=== PATIENT | female | born 1985 | race Caucasian/White ===

== ENCOUNTER 2016-08-01 19:27 | Emergency (ER) | payer OTHER ==
[2016-08-01 20:15] VITALS: BMI 27.1
[2016-08-01 20:18] VITALS: BP 142/84; PULSE 74; RESP 18; TEMP 97.9; O2SAT 100
--- NOTE | 2016-08-01 21:08 | ED PDOC ---
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 Patient stated while taking a shower she developed symptoms. Patient stated her nose felt swollen, however this symptom has resolved. Patient denies rash, sob, cp, wheezing, dysphagia, kenny, fever, sick contact, or recent travel. Denies exposure to allergen, however she said she allergic to her dog's dandruff, and she was told by her private ENT to take OTC antihistaminic medication. (Harvey Boyd) Past Medical History - Provider Review Nursing Documentation Reviewed: Yes - Infectious Disease Hx of Infectious Diseases: None - Tetanus Immunization Tetanus Immunization: Unknown - Past Medical History Past Medical History: No Previous - Psychiatric Hx Substance Use: No - Past Surgical History Past Surgical History: No Previous - Anesthesia Hx Anesthesia: No Hx Anesthesia Reactions: No Hx Malignant Hyperthermia: No - Suicidal Assessment Feels Threatened In Home Enviroment: No <Harvey Boyd - Last Filed: 08/03/16 14:25> Family/Social History - Physician Review Nursing Documentation Reviewed: Yes Family/Social History: No Known Family HX Smoking Status: Never Smoked Hx Alcohol Use: No Hx Substance Use: No Hx Substance Use Treatment: No <Harvey Boyd - Last Filed: 08/03/16 14:25> Allergies/Home Meds <Yosef Disla - Last Filed: 08/01/16 21:52> <Harvey Boyd - Last Filed: 08/03/16 14:25> Allergies/Adverse Reactions: Allergies No Known Allergies Allergy (Verified 08/05/14 09:15) Review of Systems - Review of Systems Constitutional: Normal. absent: Fatigue, Weight Change, Fevers, Night Sweats Eyes: Normal ENT: Normal, Rhinorrhea, Sinus Congestion. absent: Voice Changes, Sore Throat Respiratory: Normal. absent: SOB, Cough Cardiovascular: Normal. absent: Palpitations Gastrointestinal: Normal. absent: Abdominal Pain, Diarrhea, Nausea Genitourinary Female: Normal. absent: Dysuria, Frequency, Hematuria, Urine Output Changes, Vaginal Bleeding, Vaginal Discharge Musculoskeletal: Normal Skin: Normal. absent: Rash, Pruritis, Skin Lesions Neurological: Normal. absent: Headache, Dizziness, Focal Weakness, Gait Changes , Speech Changes, Facial Droop, Disequilibrium, Seizure Endocrine: Normal Hemo/Lymphatic: Normal Psychiatric: Normal <Harvey Boyd P - Last Filed: 08/03/16 14:25> Physical Exam Temperature: Afebrile Blood Pressure: Normal Pulse: Regular Respiratory Rate: Normal Appearance: Positive for: Well-Appearing, Non-Toxic, Comfortable Pain Distress: None Mental Status: Positive for: Alert and Oriented X 3 - Systems Exam Head: Present: Atraumatic, Normocephalic. No: Swelling Pupils: Present: PERRL Extroacular Muscles: Present: EOMI Conjunctiva: Present: Normal. No: Injected Ears: Present: Normal, NORMAL TM, Normal Canal. No: Erythema, TM Bulging, Fluid , TM Perf Mouth: Present: Moist Mucous Membranes, Normal Lips, Normal Tounge, Normal Teeth. No: Drooling Pharnyx: Present: Normal. No: ERYTHEMA, EXUDATE, TONSILS ENLARGED, Peritonsilar Swelling, Uvular Deviation, Muffled/Hoarse Voice, Strider, Soft Palate/Uvular Edema Nose (External): Present: Atraumatic Nose (Internal): Present: Clear Mucous, Rhinorrhea Neck: Present: Normal Range of Motion. No: Meningeal Signs Respiratory/Chest: Present: Clear to Auscultation, Good Air Exchange. No: Respiratory Distress, Accessory Muscle Use, Wheezes, Decreased Breath Sounds, Rales, Retracting, Rhonchi, Tachypneic Cardiovascular: Present: Regular Rate and Rhythm, Normal S1, S2. No: Murmurs Abdomen: Present: Normal Bowel Sounds. No: Tenderness, Distention, Peritoneal Signs Back: Present: Normal Inspection Upper Extremity: Present: Normal Inspection. No: Cyanosis, Edema Lower Extremity: Present: Normal Inspection. No: Edema Neurological: Present: GCS=15, CN II-XII Intact, Speech Normal Skin: Present: Warm, Dry, Normal Color. No: Rashes Psychiatric: Present: Alert, Oriented x 3, Normal Insight, Normal Concentration <Harvey Boyd - Last Filed: 08/03/16 14:25> Vital Signs Temp Pulse Resp BP Pulse Ox 08/01/16 20:15 97.9 F 74 18 142/84 100 Medical Decision Making <NaifYosef - Last Filed: 08/01/16 21:52> Re-evaluation Time: 21:20 Reassessment Condition: Re-examined, Improved <Harvey Boyd - Last Filed: 08/03/16 14:25> ED Course and Treatment: 08/01/16 21:24 Re-evaluation. Patient feels better. Discussed results and plan with patient who expresses understanding. All questions answered and there is agreement with the plan to discharge home with instructions. Patient stable for discharge. Return if symptoms persist or worsen. (Harvey Boyd) - Medication Orders Current Medication Orders: Discontinued Medications Azithromycin (Zithromax) 500 mg PO STAT STA PRN Reason: Protocol Stop: 08/01/16 21:29 Last Admin: 08/01/16 21:39 Dose: 500 MG Prednisone (Prednisone Tab) 60 mg PO STAT ONE Stop: 08/01/16 21:29 Last Admin: 08/01/16 21:39 Dose: 60 MG - PA / [employer] / Resident Statement / has reviewed & agrees with the documentation as recorded. <NaifYosef - Last Filed: 08/01/16 21:52> Disposition/Present on Arrival <NaifYosef - Last Filed: 08/01/16 21:52> - Present on Arrival Any Indicators Present on Arrival: No History of DVT/PE: No History of Uncontrolled Diabetes: No Urinary Catheter: No History of Decub. Ulcer: No History Surgical Site Infection Following: None - Disposition Have Diagnosis and Disposition been Completed?: Yes Disposition Time: 21:25 Patient Plan: Discharge <Harvey Boyd - Last Filed: 08/03/16 14:25> - Disposition Diagnosis: Nasal congestion Disposition: HOME/ ROUTINE Condition: GOOD Discharge Instructions (ExitCare): Allergic Rhinitis (ED) Additional Instructions: Call private ENT for revaluation in 1-2 days. Take medication as instructed. Return to emergency if symptoms worsen. Take OTC Benadryl for allergy as needed. Prescriptions: Prednisone [Deltasone] 60 mg PO DAILY #12 tablet Azithromycin [Z-Rip] 250 mg PO DAILY #4 tab Referrals: Allison Mckee MD [Primary Care Provider] - Follow up with primary Hector Ramírez DO [Staff Provider] - Follow up with primary Forms: WORK NOTE
== END 2016-08-01 21:51 | disposition home or self-care (01) ==
LOC: ED 19:27
DX: R09.81 Nasal congestion (principal)

== ENCOUNTER 2018-10-09 19:44 | Emergency (ER) | payer OTHER | END 2018-10-09 22:36 | disposition home or self-care (01) | LOC: ED 19:44 ==